=== PATIENT | male | born 1990 | race Caucasian/White ===

== ENCOUNTER 2025-03-23 12:19 | Emergency (ER) | payer SELFPAY ==
--- NOTE | 2025-03-23 13:01 | ERPHSYRPT ---
- History of Present Illness Time Seen by Provider: 03/23/25 13:01 Source: patient Exam Limitations: no limitations Physician History: This is a right handed white male patient that arrives by private vehicle, patient drove himself, with complaint of left hand injury that occurred at work. Patient caught his left hand between a metal frame and a shannon. Patient has significant swelling. He can extend and flex his hand but it does hurt to do so. Occurred: just prior to arrival Method of Injury: direct blow Severity of Pain-Max: mild (To moderate) Severity of Pain-Current: mild Extremities Pain Location: hand: left Modifying Factors: Improves With: movement Associated Symptoms: none Allergies/Adverse Reactions: No Known Drug Allergies Allergy (Verified 03/23/25 13:54) Travel Risk - International Travel Have you traveled outside of the country in past 3 weeks: No - Emerging Infectious Disease Are you exhibiting symptoms associated with any current EIDs: No - Review of Systems Constitutional: No Symptoms Eyes: No Symptoms Ears, Nose, & Throat: No Symptoms Respiratory: No Symptoms Cardiac: No Symptoms Abdominal/Gastrointestinal: No Symptoms Genitourinary Symptoms: No Symptoms Musculoskeletal: Injury (Left hand) Skin: No Symptoms Neurological: No Symptoms Psychological: No Symptoms Endocrine: No Symptoms Hematologic/Lymphatic: No Symptoms Immunological/Allergic: No Symptoms All Other Systems: Reviewed and Negative - Nursing Vital Signs Nursing Vital Signs: Initial Vital Signs Temperature 98.0 F 03/23/25 12:19 Pulse Rate 66 03/23/25 12:19 Respiratory Rate 18 03/23/25 12:19 Blood Pressure 122/85 03/23/25 12:19 O2 Sat by Pulse Oximetry 99 03/23/25 12:19 Pain Scale Pain Intensity 8 - Physical Exam General Appearance: no apparent distress, alert, thin Eyes, Ears, Nose, Throat Exam: normal ENT inspection, moist mucous membranes Neck Exam: normal inspection, non-tender, supple, full range of motion Cardiovascular/Respiratory Exam: chest non-tender, no respiratory distress Abdominal Exam: non-tender Back Exam: normal inspection, normal range of motion, No CVA tenderness, No vertebral tenderness Shoulder Exam: normal inspection, non-tender, no evidence of injury, normal ROM Elbow/Forearm Exam: normal inspection, non-tender, no evidence of injury, normal ROM Wrist Exam: normal inspection, non-tender, no evidence of injury, normal ROM Hand Exam: bone tenderness (Dorsal aspect left hand), soft tissue tenderness (Dorsal aspect left hand), swelling (Dorsal aspect left hand), No deformity Neuro/Tendon Exam: normal sensation, normal motor functions, normal tendon functions, no evidence tendon injury Mental Status Exam: alert, oriented x 3, cooperative Skin Exam: normal color, warm, dry SpO2 Interpretation: normal O2 Delivery: Room Air - Course Nursing assessment & vital signs reviewed: Yes Ordered Tests: Active Orders 24 hr Category Date Time Status Splint STAT Care 03/23/25 13:50 Active HAND (MINIMUM 3 VIEWS) Stat Exams 03/23/25 13:02 Taken - Progress Progress: improved, pain not gone completely Progress Note: 03/23/25 13:37 My medical decision making and the assignment of low complexity of this patient's medical issue today is based on review of the patient's past medical history, review the patient's medication list, review the patient drug allergy list, history present illness and physical findings on examination. The workup in this patient includes x-ray of the patient's left hand. Differential diagnosis includes but is not limited to contusion, fracture finger/metacarpal, dislocation finger/metacarpal 03/23/25 13:50 I interpreted the preliminary report of this patient's left hand x-ray. The patient does not have a cortical disruption, fracture or dislocation. 03/23/25 13:51 He understands that my interpretation is only preliminary. If there is discrepancy with the radiologist, then patient will receive a call from the emergency department. Counseled pt/family regarding: diagnosis, need for follow-up, rad results Medical Desision Making - Diagnostic Testing Diagnostic test were ordered, analyzed, and reviewed by me: Yes Radiological Interpretation: Interpreted by me - Risk of complications Minimal Risk: Minimal risk of morbidity - Departure Departure Disposition: Home Clinical Impression: Contusion of left hand Condition: Stable Critical Care Time: No Referrals: DOCTOR,NO FAMILY [Primary Care Provider, UNKNOWN] - Follow up/PCP as directed Additional Instructions: Wear the splint for comfort. Add ibuprofen 600 mg orally with food 3 times a day for the next 5 days. Call the hand surgeons office on 03/25/2025, to obtain a follow-up appointment. The provided you with name (S) and phone number (S) Forms: Work/School Release Form Prescriptions: Oxycodone HCl/Acetaminophen [Percocet 5-325 mg Tablet] 1 each PO Q8H PRN PRN #6 tablet MDD 3 PRN Reason: Moderate To Severe Pain
[2025-03-23 13:06] VITALS: RESP 18; TEMP 98; O2SAT 99
[2025-03-23 14:05] VITALS: BP 122/78; PULSE 64
--- NOTE | 2025-03-23 20:34 | XRAY ---
Indication: Pain following injury. Comparison: None 3 view left hand obtained. No bony, articular, or soft tissue abnormalities.
== END 2025-03-23 14:26 | disposition home or self-care (01) ==
LOC: ED 12:19
DX: S60.222A Contusion of left hand, initial encounter (principal); W23.2XXA Caught, crushed, jammed or pinched between a moving and stationary object, initial encounter; Y99.0 Civilian activity done for income or pay; Z79.891 Long term (current) use of opiate analgesic; Z72.0 Tobacco use
CPT/HCPCS: 73130; 99283; A4570